=== PATIENT | female | born 1955 | race African-American/Black ===

== ENCOUNTER 2016-11-02 19:54 | Observation (INO) | payer BC ==
[2016-11-02] MEDS ORDERED: KETOROLAC TROMETHAMINE 60 MG/2 ML VIAL IM ONE (20:31)
--- NOTE | 2016-11-02 20:31 | PDOC ---
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 She states that she fell onto her left side, and hit her head. The pain starts from her left hip to the left foot. The pain is exacerbated upon movement, standing, and laying on her back. She states that initially after the fall, she was able to walk. On Thursday,4 days ago, she states that her lower back started hurting, which progressively worsened into today. Yesterday, she used a lidocaine patch and took motrin 800mg with mild relief. The last dose of motrin that she took was 1 hour and a half ago. She states that she did not visit the ER sooner, because she is used to dealing with pain. Denies LOC, headache. Denies lightheadedness, dizziness, changes in vision. Denies chest pain, SOB. Allergies:Codeine, iodinated contrast media Surgical Hx: left hip replacement PCP- Dr. Schilling <Yuly Marcelino - Last Filed: 11/02/16 20:37> <Gosia Caruso - Last Filed: 11/05/16 04:10> - General Chief Complaint: Injury Stated Complaint: FELL ONE WEEK AGO, PAIN TO LEFT HIP/LEG Time Seen by Provider: 11/02/16 19:59 Past History <Yuly Marcelino - Last Filed: 11/02/16 20:37> - Past Medical History Other medical history: NECROSIS OF HIP/SHOULDER - Psycho/Social/Smoking Cessation Hx Anxiety: No Suicidal Ideation: No Smoking Status: No Smoking History: Never smoked Have you smoked in the past 12 months: No Number of Cigarettes Smoked Daily: 0 Information on smoking cessation initiated: No Hx Alcohol Use: No Drug/Substance Use Hx: No Substance Use Type: None <Gosia Caruso - Last Filed: 11/05/16 04:10> - Past Medical History Allergies/Adverse Reactions: Allergies Allergy/AdvReac Type Severity Reaction Status Date / Time codeine [Codeine] Allergy Verified 11/02/16 20:03 Iodinated Contrast Media - Allergy Verified 11/02/16 20:03 Oral and [IV Dye, Iodine Containing Contrast ] Home Medications: Ambulatory Orders Cyclobenzaprine HCl [Flexeril -] 10 mg PO TID PRN #20 tablet 11/04/16 Lidocaine 5% Patch [Lidoderm -] 1 patch TP DAILY #30 patch 11/04/16 Naproxen [Naprosyn -] 500 mg PO BID PRN #14 tablet 11/04/16 Prednisone [Deltasone -] 5 mg PO ASDIR #32 tab 11/04/16 Ranitidine [Zantac -] 150 mg PO DAILY #30 tablet 11/04/16 Review of Systems - Review of Systems Able to Perform ROS?: Yes Comments:: 11/02/16 20:32 CONSTITUTIONAL: Absent: fever, no chills, no fatigue EYES: Absent: visual changes ENT: Absent: ear pain, no sore throat CARDIOVASCULAR: Absent: chest pain, no palpitations RESPIRATORY: Absent: cough, no SOB GI: Absent: abdominal pain, no nausea, no vomiting, no constipation, no diarrhea GENITOURINARY: Absent: dysuria, no frequency, no hematuria MUSCULOSKELETAL: Present: lower back pain, left hip and left leg pain. Absent: no arthralgia, no myalgia SKIN: Absent: rash NEURO: Absent: headache <Yuly Marcelino - Last Filed: 11/02/16 20:37> *Physical Exam - Vital Signs Last Vital Signs Temp Pulse Resp BP Pulse Ox 97.7 F 68 20 139/78 100 11/02/16 20:04 11/02/16 20:04 11/02/16 20:04 11/02/16 20:04 11/02/16 20:04 <Yuly Marcelino - Last Filed: 11/02/16 20:37> - Vital Signs Last Vital Signs Temp Pulse Resp BP Pulse Ox 97.7 F 68 20 139/78 100 11/02/16 20:04 11/02/16 20:04 11/02/16 20:04 11/02/16 20:04 11/02/16 20:04 - Physical Exam Comments: adult female, alert and oriented X 3 , in marked distress, secondary to back/ left leg pain with any movement vital signs as noted HEAD: No contusions, abrasions or lacerations of the scalp; no facial ecchymosis , deformities or tenderness EYES: Pupils equal, round and reactive to light, extraocular movements intact, sclera anicteric, conjunctiva clear PHARYNX: No erythema, exudate or edema; mucous membranes moist NECK: Supple, nontender, no masses or bruits LUNGS: Clear to auscultation bilaterally CARDIAC: S1, S2 normal; no extra sounds, rubs or murmurs heard ABDOMEN:Normoactive bowel sounds, nontender, no masses, no organomegaly BACK:no tenderness of central lumbar or sacral vertebrae mild left paraspinal muscle tenderness, lumbar/lumbosacral area EXTREMITIES: left lower extremity- pain with straight leg raising at 10; no deformity, no edema NEUROLOGICAL: Cranial nerves II through XII grossly intact. Normal speech, normal gait.moving all 4 extremities equally, Sensation intact in all extremities. SKIN: Warm, Dry, normal turgor, no rashes or lesions not twelve-lead electrocardiogram is performed: Normal sinus rhythm at 58 bpm; axis , intervals and wave forms are all normal <Gosia Caruso - Last Filed: 11/05/16 04:10> ED Treatment Course - LABORATORY CBC & Chemistry Diagram: 11/04/16 07:00 11/04/16 07:00 <Gosia Caruso - Last Filed: 11/05/16 04:10> Progress Note - Progress Note Progress Note: Documentation has been prepared under my direction and personally reviewed by me in its entirety. I attest that this documented accurately reflects all work, treatment, procedures and medical decision making performed by me. <Gosia Caruso - Last Filed: 11/05/16 04:10> Medical Decision Making - Medical Decision Making CT of lumbar spine and plain film of pelvis/left hip performed. Imaging ergonomic specialist interpretation: There is no evidence of fracture There is moderate central canal stenosis at L3/L4, L4/L5, L5/S1 secondary to annular disc bulges and hypertrophic changes in ligamentum flavum The patient had no relief in pain after Toradol 60mg IM; After Dilaudid 1mg IM, she had marked relief. patient states that she only uses motrin for pain relief: all other medications , including Percocet, have been ineffective for pain 11/03/16 02:39 now has recurrent lower back and left leg pain. Additional Dilaudid 1 mg IV will be given. Because the patient has severe pain, requiring parenteral narcotics, and states that no medication except ibuprofen is effective for her (and this has been not working for this) inpatient admission warranted for intractable pain. Patient's PMD is Dr. Schilling who admits to [facility]. Dr. Nava cotacted and case discussed with her. Patient will be admitted as observationn for pain control/neurology evaluation <Gosia Caruso - Last Filed: 11/05/16 04:10> *DC/Admit/Observation/Transfer - Attestations Scribe Attestion: 11/02/16 20:32 Documentation prepared by LALO Rosado, acting as infertility medical assistant for Gosia Caruso MD. <Yuly Marcelino - Last Filed: 11/02/16 20:37> - Discharge Dispostion Admit: Yes <Gosia Caruso - Last Filed: 11/05/16 04:10> Diagnosis at time of Disposition: Intractable low back pain - Discharge Dispostion Disposition: HOME Condition at time of disposition: Improved - Prescriptions - Referrals
[2016-11-02 20:36] VITALS: BMI 24.4
[2016-11-02] MEDS ORDERED: HYDROmorphone HCL CARPU-JECT 1 MG/1 ML DISP.SYRIN IM ONE (21:37)
[2016-11-02] MEDS ORDERED: HYDROmorphone HCL CARPU-JECT 2 MG/1 ML DISP.SYRIN ONE (21:42)
[2016-11-02 23:02] LABS: MCH 28.8 pg (25.7-33.7); MCHC 33.6 g/dl (32.0-36.0); MEAN CELL VOLUME 85.6 fl (80-96); MEAN PLT VOLUME 8.6 fl (7.5-11.1); PLATELET COUNT 177 K/MM3 (134-434); RDW 12.1 % (11.6-15.6); WHITE BLOOD COUNT 6.6 K/mm3 (4.0-10.0)
[2016-11-02 23:16] LABS: ALBUMIN 3.7 g/dl (3.5-5.0); ALK PHOS 98 U/L (32-92); ANION GAP 7 (8-16); BILIRUBIN,TOTAL 0.5 mg/dl (0.2-1.0); CALCIUM 8.7 mg/dl (8.4-10.2); CO2 24 mmol/L (22-28); CREATININE 0.8 mg/dl (0.6-1.3); GLUCOSE,RANDOM 114 mg/dl (74-106); SGOT/AST 24 U/L (10-42); SGPT/ALT 11 U/L (10-40); TOT PROT 6.7 g/dl (6.4-8.3)
[2016-11-03] MEDS ORDERED: morphine CARPU-JECT 2 MG/1 ML DISP.SYRIN IVPUSH PRN (02:32)
[2016-11-03] MEDS ORDERED: HYDROmorphone HCL CARPU-JECT 1 MG/1 ML DISP.SYRIN IVPUSH ONE (02:32)
--- NOTE | 2016-11-03 07:52 | HP ---
[id number] patient is a 61-year-old female, with a significant past medical history of aseptic necrosis of bilateral hips and right shoulder. She underwent a left hip replacement (2012, to [facility]). She reports no pain after her left hip replacement. However, she does report ongoing pain to the right hip and as a results she shifts her weight to the left hip hip in an attempt to alleviate her ongoing right hip pain. In addition, patient fell one week ago, due to uneven plywood plank at her apartment building. He reports falling onto her left side, as a result the pain became progressively worse. Patient reports relief from Motrin and lidocaine patch daily but with the past 24 hours the pain became unrelieved with her home regimen and she sought evaluation in the emergency department. ER course was notable for: (1) ct of lumbar spine, grade I spondylithasis, no compression fracture. 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 PAST SURGICAL HISTORY: left hip replacement Social History: resides at home alone Smoking: none Alcohol: none Drugs: none Family History: non contributory Allergies codeine [Codeine] Allergy (Verified 11/02/16 20:03) Iodinated Contrast Media - Oral and [IV Dye, Iodine Containing Contrast ] Allergy (Verified 11/02/16 20:03) HOME MEDICATIONS: Medication Instructions Recorded No Home Medications 0 dose .ROUTE UTDICT 09/03/12 REVIEW OF SYSTEMS CONSTITUTIONAL: Absent: fever, chills, diaphoresis, generalized weakness, malaise, loss of appetite, weight change HEENT: Absent: rhinorrhea, nasal congestion, throat pain, throat swelling, difficulty swallowing, mouth swelling, ear pain, eye pain, visual changes CARDIOVASCULAR: Absent: chest pain, syncope, palpitations, irregular heart rate, lightheadedness , peripheral edema RESPIRATORY: Absent: cough, shortness of breath, dyspnea with exertion, orthopnea, wheezing, stridor, hemoptysis GASTROINTESTINAL: Absent: abdominal pain, abdominal distension, nausea, vomiting, diarrhea, constipation, melena, hematochezia GENITOURINARY: Absent: dysuria, frequency, urgency, hesitancy, hematuria, flank pain, genital pain MUSCULOSKELETAL: Present: left hip pain Absent: myalgia, arthralgia, joint swelling, back pain, neck pain SKIN: Absent: rash, itching, pallor HEMATOLOGIC/IMMUNOLOGIC: Absent: easy bleeding, easy bruising, lymphadenopathy, frequent infections ENDOCRINE: Absent: unexplained weight gain, unexplained weight loss, heat intolerance, cold intolerance NEUROLOGIC: Absent: headache, focal weakness or paresthesias, dizziness, unsteady gait, seizure, mental status changes, bladder or bowel incontinence PSYCHIATRIC: Absent: anxiety, depression, suicidal or homicidal ideation, hallucinations. PHYSICAL EXAMINATION Vital Signs - 24 hr 11/03/16 03:35 Temperature 98.5 F Pulse Rate 60 Respiratory 16 Rate Blood Pressure 140/68 O2 Sat by Pulse 100 Oximetry (%) GENERAL: Awake, alert, and fully oriented, in no acute distress. HEAD: Normal with no signs of trauma. EYES: Pupils equal, round and reactive to light, extraocular movements intact, sclera anicteric, conjunctiva clear. No lid lag. EARS, NOSE, THROAT: Ears normal, nares patent, oropharynx clear without exudates. Moist mucous membranes. NECK: Normal range of motion, supple without lymphadenopathy, JVD, or masses. LUNGS: Breath sounds equal, clear to auscultation bilaterally. No wheezes, and no crackles. No accessory muscle use. HEART: Regular rate and rhythm, normal S1 and S2 without murmur, rub or gallop. ABDOMEN: Soft, nontender, not distended, normoactive bowel sounds, no guarding, no rebound, no masses. No hepatomegaly or splenomegaly. MUSCULOSKELETAL: Normal range of motion at all joints. No bony deformities or tenderness. No CVA tenderness. negative slr billaterally at 45 and at 90 degress UPPER EXTREMITIES: 2+ pulses, warm, well-perfused. No cyanosis. No clubbing. Cap refill <2 seconds. No peripheral edema. LOWER EXTREMITIES: 2+ pulses, warm, well-perfused. No calf tenderness. No peripheral edema. no pain illicted upon abduction or aduction of the left hip pain on PROM of the right hip, no erythema no deformity noted NEUROLOGICAL: Cranial nerves II-XII intact. Normal speech. Normal gait. PSYCHIATRIC: Cooperative. Good eye contact. Appropriate mood and affect. SKIN: Warm, dry, normal turgor, no rashes or lesions noted. ASSESSMENT/PLAN: 1) muscularskeletal: - pt reports perocet and ultram is Ineffective, continue morphine 4mg IV prn, start naproxyn 500mg BID standing, and flexeril prn - pt evaluation - appreciate ortho consult (Dr Jang), pt reports she has been evaluated by Dr Jang last year. f/e/n - regualar diet ppx oob pt zantac dispo: requires 24 hour observation Visit type - Emergency Visit Emergency Visit: Yes ED Registration Date: 11/03/16 Care time: The patient presented to the Emergency Department on the above date and was hospitalized for further evaluation of their emergent condition. - New Patient This patient is new to me today: Yes Date on this admission: 11/03/16 - Critical Care Critical Care patient: No
[2016-11-03] MEDS: CYCLOBENZAPRINE HCL 10 MG TABLET (FP) PO PRN ×2 (08:54→17:30)
[2016-11-03] MEDS: ONDANSETRON 4 MG/2 ML VIAL IVPB ONE ×2 (08:54→08:55)
[2016-11-03] MEDS: NAPROXEN 500 MG TABLET (FP) PO SCH ×3 (09:15→21:59)
[2016-11-03] MEDS: RANITIDINE HCL 150 MG TABLET (FP) PO SCH (09:16)
[2016-11-03] MEDS: LIDOCAINE 5% TOPICAL PATCH TP SCH (11:15)
--- NOTE | 2016-11-03 12:48 | FALL ---
Fall Exam - Event Witnessed fall: No Location of Fall: Bathroom Fall from: While ambulating - Pre-Fall Fall Risk: High Risk Mental Status: Alert Current Medications: Current Medications Generic Name Dose Route Start Last Admin Trade Name Cintia PRN Reason Stop Dose Admin Cyclobenzaprine HCl 10 mg 11/03/16 08:25 11/03/16 08:54 Flexeril - PO 10 mg TID PRN Administration MUSCLE SPASMS Lidocaine 1 patch 11/03/16 10:00 11/03/16 11:15 Lidoderm Patch - TP 1 patch DAILY JON Administration Morphine Sulfate 2 mg 11/03/16 02:32 Morphine Injection - IVPUSH Q4H PRN PAIN LEVEL 6-10 Naproxen 500 mg 11/03/16 10:00 11/03/16 09:15 Naprosyn - PO 500 mg BID JON Administration Ranitidine HCl 150 mg 11/03/16 10:00 11/03/16 09:16 Zantac - PO 150 mg DAILY JON Administration - Post-Fall Patient Outcome: No Injury Treatment: None Vital Signs: Vital Signs Temperature 98.5 F 11/03/16 08:15 Pulse Rate 60 11/03/16 08:15 Respiratory Rate 16 11/03/16 08:15 Blood Pressure 133/68 11/03/16 08:15 O2 Sat by Pulse Oximetry (%) 100 11/03/16 08:15 LOC Post-Fall: Unchanged, Awake, Alert, Oriented Identify factors for HIGH RISK for Head Injury: None of the above
--- NOTE | 2016-11-03 13:16 | EKG ---
Test Reason : Blood Pressure : / mmHG Vent. Rate : 058 BPM Atrial Rate : 058 BPM P-R Int : 180 ms QRS Dur : 074 ms QT Int : 394 ms P-R-T Axes : 059 045 046 degrees QTc Int : 386 ms SINUS BRADYCARDIA OTHERWISE NORMAL ECG WHEN COMPARED WITH ECG OF 30-AUG-2012 18:24, NO SIGNIFICANT CHANGE WAS FOUND Confirmed by CAL MCGRATH MD ([id number]) on 11/03/2016 1:15:53 PM Referred By: JEROME PRYOR Confirmed By:CAL MCGRATH MD
[2016-11-03 13:24] LABS: PH,URINE 5.5 (4.5-8); URINE BILIRUBIN Negative (NEGATIVE); URINE BLOOD Negative (NEGATIVE); URINE GLUCOSE (UA) Negative (NEGATIVE); URINE KETONE Negative (NEGATIVE); URINE NITRITE Negative (NEGATIVE); URINE PROTEIN Trace (NEGATIVE); URINE UROBILINOGEN 1.0 E.U/dl (0.2-1.0)
[2016-11-03 13:27] LABS: URINE APPEARANCE SL CLOUDY; URINE COLOR YELLOW; URINE LEUK ESTERASE 1+ (NEGATIVE)
[2016-11-03 13:46] LABS: URINE RBC NONE SEEN /hpf (0-3); URINE WBC 50-80 (3-5)
--- NOTE | 2016-11-03 19:49 | CONSULT ---
Consult Consult Specialty:: Orthopedics Reason for Consultation:: Low back and LLE pain - History of Present Illness History of Present Illness: 61yo female who I have seen before as an outpatient. 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 She fell ~ 1wk ago and hit her hip. A few days later she started developing low back pain and yesterday after orthodox the back pain increased to the point where she was in tears and could not stand on her left leg due to severe radiating pain in the limb. She tried taking ibuprofen and using a lidocaine patch without relief. Pt seen and examined. Describes radiating pain in the anterior left thigh down to the ankle, with electric sensations and numbness. It has improved since yesterday but she is still uncomfortable. She was able to ambulate with PT today. - Alcohol/Substance Use Hx Alcohol Use: No - Smoking History Smoking history: Never smoked Have you smoked in the past 12 months: No Aproximately how many cigarettes per day: 0 Home Medications - Allergies Allergies/Adverse Reactions: Allergies Allergy/AdvReac Type Severity Reaction Status Date / Time codeine [Codeine] Allergy Verified 11/02/16 20:03 Iodinated Contrast Media - Allergy Verified 11/02/16 20:03 Oral and [IV Dye, Iodine Containing Contrast ] - Home Medications Home Medications: Ambulatory Orders No Home Medications 0 dose .ROUTE UTDICT 09/03/12 Physical Exam Vital Signs: Vital Signs Temperature 98 F 11/03/16 16:00 Pulse Rate 133 H 11/03/16 16:00 Respiratory Rate 16 11/03/16 16:15 Blood Pressure 134/74 11/03/16 13:41 O2 Sat by Pulse Oximetry (%) 100 11/03/16 16:15 Assessment/Plan Afebrile Back/LLE - mild paraspinal tenderness. C/O radiating pain and numbness in the ~ L4 distribution. Negative straight leg raise bilaterally. No left hip joint- related pain on ROM testing. Can maintain a straight leg raise without significant difficulty. Grossly NVI in the LLE, though c/o subjective numbness. XR hip - no fracture, hardware in place CT L/spine - L3/L4 spondylolisthesis, L4/L5 disc protrusion (herniation?) with left-sided neuroforaminal stenosis A/P 61yo female with lumbar radiculopathy - symptoms seem like acute herniated disc 1. Start on Medrol 8mg PO Q8h - if pt improves, discharge home on Medrol Dose- Pack (taper) 2. Will need MRI as inpatient vs outpatient 3. Consult Dr. Salazar for possible epidural injection if no response to oral meds. 4. F/U in our office after discharge with my partner, Dr. Calderon, a government affairs specialist. [phone] 5. PT/OOB - WBAT 6. Will follow.
[2016-11-03] MEDS: methylPREDNISolone 4 MG TABLET PO SCH (21:58)
[2016-11-04] MEDS: methylPREDNISolone 4 MG TABLET PO SCH ×2 (06:17→14:00)
[2016-11-04 08:42] LABS: BASOPHIL 0.5 % (0-2.0); EOSINOPHIL 0.2 % (0-4.5); MCH 28.1 pg (25.7-33.7); MCHC 32.5 g/dl (32.0-36.0); MEAN CELL VOLUME 86.4 fl (80-96); MEAN PLT VOLUME 8.6 fl (7.5-11.1); NEUTROPHILS 74.9 % (42.8-82.8); PLATELET COUNT 177 K/MM3 (134-434); RDW 12.4 % (11.6-15.6); WHITE BLOOD COUNT 4.1 K/mm3 (4.0-10.0)
[2016-11-04 09:06] LABS: ALBUMIN 3.7 g/dl (3.5-5.0); ALK PHOS 104 U/L (32-92); ANION GAP 5 (8-16); BILIRUBIN,TOTAL 0.7 mg/dl (0.2-1.0); CO2 27 mmol/L (22-28); CREATININE 0.7 mg/dl (0.6-1.3); GLUCOSE,RANDOM 110 mg/dl (74-106); MAGNESIUM 1.8 mg/dL (1.8-2.4); PHOSPHOROUS 3.8 mg/dl (2.5-4.6); SGOT/AST 21 U/L (10-42); SGPT/ALT 12 U/L (10-40); TOT PROT 6.6 g/dl (6.4-8.3)
--- NOTE | 2016-11-04 09:12 | DS ---
Physical Exam: SUBJECTIVE: Patient seen and examined, patient reports feeling better, reports pain is 2/10, denies any paresthesia to the lower extremity. 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 She underwent a left hip replacement (2012, to [facility]). She reports no pain after her left hip replacement. However, she does report ongoing pain to the right hip and as a results she shifts her weight to the left hip hip in an attempt to alleviate her ongoing right hip pain. In addition, patient fell one week ago, due to uneven plywood plank at her apartment building. He reports falling onto her left side, as a result the pain became progressively worse. Patient reports relief from Motrin and lidocaine patch daily but with the past 24 hours the pain became unrelieved with her home regimen and she sought evaluation in the emergency department. ER course was notable for: (1) ct of lumbar spine, grade I spondylithasis, no compression fracture. (2) xray of left hip, no fracture (3) WBC wnl (4) pt was given dilaudid 2mg and toradol 60mg with no relief of pain Vital Signs Period Temp Pulse Resp BP Sys/Wilcox Pulse Ox Last 24 Hr 97.4 F-98.6 F 58-133 16-18 130-138/67-74 99-100 PHYSICAL EXAM GENERAL: Awake, alert, and fully oriented, in no acute distress. HEAD: Normal with no signs of trauma. EYES: Pupils equal, round and reactive to light, extraocular movements intact, sclera anicteric, conjunctiva clear. No lid lag. EARS, NOSE, THROAT: Ears normal, nares patent, oropharynx clear without exudates. Moist mucous membranes. NECK: Normal range of motion, supple without lymphadenopathy, JVD, or masses. LUNGS: Breath sounds equal, clear to auscultation bilaterally. No wheezes, and no crackles. No accessory muscle use. HEART: Regular rate and rhythm, normal S1 and S2 without murmur, rub or gallop. ABDOMEN: Soft, nontender, not distended, normoactive bowel sounds, no guarding, no rebound, no masses. No hepatomegaly or splenomegaly. MUSCULOSKELETAL: Normal range of motion at all joints. No bony deformities or tenderness. No CVA tenderness. negative slr billaterally at 45 and at 90 degress UPPER EXTREMITIES: 2+ pulses, warm, well-perfused. No cyanosis. No clubbing. Cap refill <2 seconds. No peripheral edema. LOWER EXTREMITIES: 2+ pulses, warm, well-perfused. No calf tenderness. No peripheral edema. no pain illicted upon abduction or aduction of the left hip pain on PROM of the right hip, no erythema no deformity noted NEUROLOGICAL: Cranial nerves II-XII intact. Normal speech. Normal gait. PSYCHIATRIC: Cooperative. Good eye contact. Appropriate mood and affect. SKIN: Warm, dry, normal turgor, no rashes or lesions noted. LABS Laboratory Results - last 24 hr 11/03/16 11/04/16 12:30 07:00 WBC 4.1 D RBC 4.47 Hgb 12.6 Hct 38.6 MCV 86.4 MCHC 32.5 RDW 12.4 Plt Count 177 MPV 8.6 Neutrophils % 74.9 D Lymphocytes % 20.9 Monocytes % 3.5 L Eosinophils % 0.2 Basophils % 0.5 Urine Color Yellow Urine Appearance Sl cloudy Urine pH 5.5 Ur Specific [place] >= 1.030 H Urine Protein Trace Urine Glucose (UA) Negative Urine Ketones Negative Urine Blood Negative Urine Nitrite Negative Urine Bilirubin Negative Urine Urobilinogen 1.0 e.u/dl Ur Leukocyte Esterase 1+ H Urine RBC None seen Urine WBC 50-80 Ur Epithelial Cells 3-[address] of lumbar spine, grede 1 degenerative anterior spondylolistheis of l3 on l4, moderate severe central spinal canal stenosis. xray of hip/pelvis, left hip arthoplasty, right femoral head AVN noted with degenerative changes HOSPITAL COURSE: patient was admitted for intractable back and hip pain. she was initally treated with dilaudid and toradol with no relief of pain. patient eports perocet and ultram is Ineffective, morphine 4mg IV prn She was started on naproxyn 500mg BID standing, and flexeril prn. patient was evaluated by the orthopedist Dr Jang. she was placed on methyl prednisone with relief. PLAN discharge home with physical therapy steroid taper an appointment was made for Dr Salazar (pain management) for tomorrow at 1pm continue naproxyn and flexeril for pain ate of Admission:11/03/16 Date of Discharge: 11/04/16 Minutes to complete discharge: 45 Discharge Summary Reason For Visit: FELL ONE WEEK AGO, PAIN TO LEFT HIP/LEG Current Active Problems Intractable low back pain (Acute) Condition: Stable - Instructions Referrals: Donell Schilling MD [Primary Care Provider] - - Home Medications Comprehensive Discharge Medication List: Ambulatory Orders No Home Medications 0 dose .ROUTE UTDICT 09/03/12 This patient is new to me today: No Emergency Visit: Yes ED Registration Date: 11/03/16 Care time: The patient presented to the Emergency Department on the above date and was hospitalized for further evaluation of their emergent condition. Critical Care patient: No - Discharge Referral Referred to [facility] No
--- NOTE | 2016-11-04 09:40 | PN ---
Progress Note (short form) - Note Progress Note: Pt seen and examined. Feels a little better after starting steroid Plan: PT - if improved, D/C with Medrol Dose Pack and Naproxen, f/u with Dr. Calderon for herniated disc If no improvement, pain mgmt consult for epidural injection.
[2016-11-04] MEDS ORDERED: PT OWN MED DRAWER 7, Y5N ONE ×2 (09:45→13:51)
[2016-11-04] MEDS: NAPROXEN 500 MG TABLET (FP) PO SCH (10:03)
[2016-11-04] MEDS: RANITIDINE HCL 150 MG TABLET (FP) PO SCH (10:04)
[2016-11-04] MEDS: LIDOCAINE 5% TOPICAL PATCH TP SCH (11:00)
[2016-11-04] MEDS: CYCLOBENZAPRINE HCL 10 MG TABLET (FP) PO PRN (13:59)
[2016-11-04 15:41] VITALS: BP 122/62; PULSE 73; TEMP 98.1
== END 2016-11-04 15:00 | disposition home or self-care (01) ==
LOC: FER 19:54 → FM/S 11-03 02:40
PROVIDERS: ADMIT Internal Medicine; ATTEND Nurse Practitioner Family
DX: M54.5 Low back pain (principal); Z96.642 Presence of left artificial hip joint
CPT/HCPCS: 36415; 72131-TC; 73523-TC; 80053; 81003; 81015; 83735; 84100; 85025; 87086; 93005; 97116-GP; 97163-GP; 99284-25; G0378

== ENCOUNTER 2020-06-27 10:47 | Inpatient (IN) | payer BC, OTHER ==
[2020-06-27] MEDS ORDERED: ACETAMINOPHEN 325 MG TABLET (FP) PO ONE (10:58)
--- NOTE | 2020-06-27 10:58 | PDOC ---
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 Pt was walking down incline asphalt that was emilia, when she tripped and tumbled down, hitting her lower back and right side against the ground and wall. felt dazed, but denies LOC or head injury. she feels tingling and numb in her whole body. +difficulty walking and lower back pain worse with movement. no cp or sob, abdominal pain, n/v, weakness, bladder or bowel incontinence/r etention, neck pain. 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 PSH: left hip replacement (2012). PMD: Dr Perales 06/27/20 13:56 Past History - Medical History Allergies/Adverse Reactions: Allergies Allergy/AdvReac Type Severity Reaction Status Date / Time codeine [Codeine] Allergy Intermediate Rash Verified 06/27/20 10:51 Iodinated Contrast Media Allergy Rash Verified 06/27/20 10:51 [IV Dye, Iodine Containing Contrast ] Home Medications: Ambulatory Orders Darunavir/Cob/Emtri/Tenof Alaf [Symtuza [id number] mg Tab] 1 each PO DAILY 06/27/20 - Surgical History Orthopedic Surgery: Yes (2012 left hip replacement) - Psycho-Social/Smoking History Smoking Status: No Smoking History: Never smoked Have you smoked in the past 12 months: No Number of Cigarettes Smoked Daily: 0 Review of Systems - Review of Systems Able to Perform ROS?: Yes Comments:: 06/27/20 13:34 ROS: Constitutional: no fevers or chills. HEENT: no headache, no dizziness. No visual or hearing changes. No dental pain. No neck pain CVS: no chest pain or palpitations, no syncope Resp: no shortness of breath Abdomen: no abdominal pain Genitorurinary: no urinary retention or incontinence, no dysuria, urgency or frequency. no hematuria MUSCULOSKELETAL: No joint pain and swelling. No muscle pain/arthralgias. +wrist pain. Back: +back pain SKIN: no redness or skin changes, no discharge, no rash. No wounds. Hematologic: no easy bruising/bleeding. NEUROLOGIC: No weakness, numbness or tingling. Allergic/Immunologic: +medication allergies All other systems reviewed and negative, or as documented in HPI. 06/27/20 13:36 *Physical Exam - Physical Exam 06/27/20 13:34 Physical exam: General: GCS 15 - uncomfortable appearing HEENT: NCAT, PERRL, EOMI. Airway intact. No battles sign or raccoon eyes. No e/o ocular. Dentition intact. No e/o septal hematoma, nasal bridge stable. Neck: neck supple, no midline C spine tenderness or deformity, ROM intact. No anterior mass or crepitus, trachea midline. Resp: Lungs clear bilaterally Chest: no clavicle or chest wall tenderness or crepitus CVS: RRR, 2+ pulses throughout. Abdomen: Abdomen soft, nontender, nondistended. Back: +midline lower thoracic and lumbar TTP, right paraspinal lumbar tenderness. no midline spinal tenderness along cervical spine, FROM, no stepoffs. MSK: Pelvis stable, Extremities symmetric, no focal areas of tenderness or deformities, proximal and distally; no pain on axial loading. FROM in all extrem. +mild tenderness to the distal right wrist; no scaphoid tenderness, no tenderness with axial loading. 5/5 plantar and dorsiflexion, SILT in all extrem Neuro: Alert, oriented appropriately. CN II-XII grossly symmetric and intact. no focal neuro deficits. Sensation and strength intact throughout. gait not assessed. wiggles toes, 5/5 plantar and dorsiflexion, 5/5 proximal and distal strength in all extremities. Skin: intact, normal color and well perfused. no ecchymosis or wounds 06/27/20 13:37 06/27/20 14:36 ED Treatment Course - LABORATORY CBC & Chemistry Diagram: 06/27/20 14:05 06/27/20 14:05 Medical Decision Making - Medical Decision Making 06/27/20 11:38 Vital Signs Temp Pulse Resp BP Pulse Ox 98.4 F 59 L 20 138/74 98 06/27/20 10:50 06/27/20 10:50 06/27/20 10:50 06/27/20 10:50 06/27/20 10:50 Trauma ddx: ICH, SDH/ EDH, skull fx, C spine injury/strain, extremity sprain/fracture, pelvis fracture. MSK contusion, msk spasms. Rib fractures. PTX . compression fracture, lumbar/sacral/thoracic strain, rib fx, ptx, effusion, chest wall contusion. Clinically doubt Intra abdominal and thoracic injuries/bleed No evidence to suggest intracranial bleed/injury, no head ct imaging indicated at this time, neuro intact. no suspicion of thoracic, abdominal, pelvic or extremity injury by exam. NEXUS NEGATIVE The patient was ruled out for clinically significant C-spine injury via NEXUS criteria. Because the patient is A&Ox3, has no focal neurologic deficits, no posterior midline c-spine tenderness to palpation, no evidence of intoxication and has no painful distracting injuries there is no need to obtain radiographic studies to evaluate the cervical spine. 06/27/20 11:59 Scoliosis degenerative changes clear lungs, no acute chest pathology Thoracic x-ray is unremarkable, there is some scoliosis and degenerative changes but no fracture or subluxation. Lumbosacral spine x-ray also with scoliosis patent SI joints, status post left hip replacement and arthritic right hip intact paraspinal soft tissues. There may be slight subluxation of L4 on 5 which is new compared to prior imaging 2017. Patient does hurt in the area will pursue CT imaging for further evaluation of potential fracture versus subluxation after her fall. 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 admitting to Dr Coretz, signed out case covid swab 06/27/20 14:36 06/27/20 14:37 Discharge - Discharge Information Problems reviewed: Yes Clinical Impression/Diagnosis: T12 compression fracture Qualifiers: Encounter type: initial encounter Qualified Code(s): S22.080A - Wedge compression fracture of T11-T12 vertebra, initial encounter for closed fracture Compression fracture of L3 vertebra Qualifiers: Encounter type: initial encounter Qualified Code(s): S32.030A - Wedge compression fracture of third lumbar vertebra, initial encounter for closed fracture Condition: Stable - Admission Yes - Follow up/Referral Referrals: Celeste De [Primary Care Provider] - - Patient Discharge Instructions - Post Discharge Activity
[2020-06-27] MEDS ORDERED: LIDOCAINE 5% TOPICAL PATCH TP ONE (10:59)
[2020-06-27] MEDS ORDERED: CYCLOBENZAPRINE HCL 5 MG TABLET PO ONE (10:59)
[2020-06-27] MEDS ORDERED: ACETAMINOPHEN 500 MG TABLET (FP) ONE (11:05)
[2020-06-27] MEDS ORDERED: LIDOCAINE 5% TOPICAL PATCH ONE (11:05)
[2020-06-27] MEDS ORDERED: CYCLOBENZAPRINE HCL 10 MG TABLET (FP) ONE (11:05)
[2020-06-27] MEDS ORDERED: oxyCODONE HCL 5 MG TABLET PO ONE (12:01)
[2020-06-27] MEDS ORDERED: oxyCODONE HCL 5 MG TABLET ONE (12:24)
[2020-06-27 14:34] LABS: BASO % 3.2 % (0-2.0); HEMATOCRIT 39.2 % (32.4-45.2); HEMOGLOBIN 13.1 GM/dl (10.7-15.3); LYMPH % 27.1 % (8-40); MCH 29.4 pg (25.7-33.7); MCHC 33.5 g/dl (32.0-36.0); MEAN CELL VOLUME 87.7 fl (80-96); MEAN PLT VOLUME 8.2 fl (7.5-11.1); MONO % 5.2 % (3.8-10.2); NEUT % 62.5 % (42.8-82.8); PLATELET COUNT 200 K/MM3 (134-434); RBC 4.47 M/mm3 (3.60-5.2); RDW 12.4 % (11.6-15.6); WHITE BLOOD COUNT 6.1 K/mm3 (4.0-10.8)
[2020-06-27 14:41] LABS: ALBUMIN 3.8 g/dl (3.4-5.0); BILIRUBIN,TOTAL 0.7 mg/dl (0.2-1); CALCIUM 8.9 mg/dl (8.5-10); CREATININE 0.8 mg/dl (0.55-1.3); POTASSIUM 4.2 mmol/L (3.5-5.1); TOT PROT 6.9 g/dl (6.4-8.2)
[2020-06-27] MEDS ORDERED: ACETAMINOPHEN 1000 MG/100 ML VIAL (NON FORMULARY) IVPB PRN (15:12)
[2020-06-27] MEDS ORDERED: CYCLOBENZAPRINE HCL 10 MG TABLET (FP) PO PRN (15:13)
--- NOTE | 2020-06-27 15:17 | HP ---
CHIEF COMPLAINT: s/p mechanical fall PCP: denies HISTORY OF PRESENT ILLNESS: 65 F h/o HIV on HAART (undetectable VL), otherwise no PMHx, presents s/p mechanical fall after tripping on a "emilia pathway". Patient denies prodromal symptoms such as SOb/CP/dizziness/vertigo/palpitations. Endorses fall was mechanical landing on her back. In ED imaging showing acute fx of T12-S1, NSG consulted recommending conservative management. Pt. to be admitted for pain control and PT. Denies COVID symptoms. Recent Travel: denies PAST MEDICAL HISTORY: as above PAST SURGICAL HISTORY: denies Social History: denies x3 Allergies codeine [Codeine] Allergy (Intermediate, Verified 06/27/20 10:51) Rash Iodinated Contrast Media [IV Dye, Iodine Containing Contrast ] Allergy (Verified 06/27/20 10:51) Rash HOME MEDICATIONS: Home Medications Medication Instructions Recorded Darunavir/Cob/Emtri/Tenof Alaf 1 each PO DAILY 06/27/20 [Symtuza [id number] mg Tab] PHYSICAL EXAMINATION Vital Signs - 24 hr 06/27/20 06/27/20 10:50 12:55 Temperature 98.4 F Pulse Rate 59 L Pulse Rate [ 54 L Apical] Respiratory 20 16 Rate Blood Pressure 138/74 O2 Sat by Pulse 98 99 Oximetry (%) Physical Exam: GA comfortable, AAOx3, tired appearing HEENT nC/AT, EOMI, neck supple, no oral thrush Chest CTAB CVS s1, S2+, RRR Abd SOft, NT, ND, BS+ Ext no LE edema, no calf tenderness MSK: tenderness along T12-S1 region, no palpable off step Neuro: sensation intact LE b/l, 3/5 power LE (due to pain), good strength sensation UE b/l Laboratory Results - last 24 hr 06/27/20 06/27/20 14:05 14:05 WBC 6.1 RBC 4.47 Hgb 13.1 Hct 39.2 MCV 87.7 MCH 29.4 MCHC 33.5 RDW 12.4 Plt Count 200 MPV 8.2 Absolute Neuts (auto) 3.9 Neutrophils % 62.5 Lymphocytes % 27.1 Monocytes % 5.2 Eosinophils % 2.0 Basophils % 3.2 H Sodium 137 Potassium 4.2 Chloride 105 Carbon Dioxide 22 Anion Gap 10 BUN 15.0 Creatinine 0.8 Est GFR (CKD-EPI)AfAm 90.94 Est GFR (CKD-EPI)NonAf 78.46 Random Glucose 92 Calcium 8.9 Total Bilirubin 0.7 AST 28 ALT 17 Alkaline Phosphatase 125 H Total Protein 6.9 Albumin 3.8 ASSESSMENT/PLAN: 65 F S/p mechanical fall T12-S1 compression FRACTURE HIV on HAART w/ undetectable VL Plan: Tylenol IV for pain, Percocet for severe breakthrough pain, Flexeril for muscle spasms Labs in AM Restart HAART supplement Vit D/Ca, may need osteoporosis workup as OP (DEXA scan) PT referral NSG following Follow w/ PCP Dr. Gallardo on discharge Dvt ppx: SCD/ambulation as tolerated Family Medical History Family History: Unremarkable Visit type - Emergency Visit Emergency Visit: Yes ED Registration Date: 06/27/20 Care time: The patient presented to the Emergency Department on the above date and was hospitalized for further evaluation of their emergent condition. - New Patient This patient is new to me today: Yes Date on this admission: 06/27/20 - Critical Care Critical Care patient: No
[2020-06-27] MEDS ORDERED: KETOROLAC TROMETHAMINE 60 MG/2 ML VIAL ONE (15:23)
[2020-06-27 17:45] VITALS: BMI 30.4
[2020-06-28] MEDS: CALCIUM 500MG/VIT-D 200 UNITS COMBO TABLET (FP) PO SCH ×3 (06:21→21:33)
[2020-06-28] MEDS ORDERED: oxyCODONE HCL 5 MG TABLET PO ONE (07:00)
[2020-06-28 08:08] LABS: EOS % 5.3 % (0-4.5); HEMATOCRIT 38.5 % (32.4-45.2); HEMOGLOBIN 12.2 GM/dl (10.7-15.3); LYMPH % 30.5 % (8-40); MCH 28.1 pg (25.7-33.7); MCHC 31.7 g/dl (32.0-36.0); MEAN CELL VOLUME 88.5 fl (80-96); MEAN PLT VOLUME 7.9 fl (7.5-11.1); MONO % 9.3 % (3.8-10.2); PLATELET COUNT 202 K/MM3 (134-434); RBC 4.35 M/mm3 (3.60-5.2); RDW 12.9 % (11.6-15.6); WHITE BLOOD COUNT 3.9 K/mm3 (4.0-10.8)
[2020-06-28 08:12] LABS: ALBUMIN 3.3 g/dl (3.4-5.0); BILIRUBIN,TOTAL 0.7 mg/dl (0.2-1); CALCIUM 8.3 mg/dl (8.5-10); POTASSIUM 4.2 mmol/L (3.5-5.1); TOT PROT 6.2 g/dl (6.4-8.2)
[2020-06-28] MEDS ORDERED: PATIENT'S OWN MEDICATION (NON-FORMULARY) (Darunavir/Cob/Emtri/Tenof Alaf [Symtuza 800-150- PO SCH ×2 (10:00→21:00)
--- NOTE | 2020-06-28 13:53 | PN ---
Progress Note, Physician Chief Complaint: s/p fall with Acute mild T12 and L3 vertebral body compression fractures History of Present Illness: 65 F h/o HIV on HAART (undetectable VL), otherwise no PMHx, presents s/p mec hanical fall after tripping on a "emilia pathway". Patient denies prodromal symptoms such as SOb/CP/dizziness/vertigo/palpitations. Endorses fall was mechanical landing on her back. In ED imaging showing acute fx of T12-L3, NSG consulted recommending conservative management. Pt. to be admitted for pain control and PT. Denies COVID symptoms, COVID screen negative. - Current Medication List Current Medications: Active Medications Acetaminophen (Ofirmev Injection -) 1,000 mg IVPB Q8H PRN PRN Reason: PAIN LEVEL 7 - 10 Stop: 06/28/20 15:13 Last Admin: 06/27/20 20:48 Dose: 1,000 mg Documented by: Calcium Carbonate/Cholecalciferol (Os-Tyree 500+D -) 1 tab PO BID [facility] Last Admin: 06/28/20 10:35 Dose: 1 tab Documented by: Cyclobenzaprine HCl (Flexeril -) 5 mg PO TID PRN PRN Reason: MUSCLE SPASMS Last Admin: 06/27/20 20:48 Dose: 5 mg Documented by: Non-Formulary Medication (Darunavir/Cob/Emtri/Tenof Alaf [Symtuza [id number] Mg Tab]) 1 each PO DAILY@2100 JON - Objective Vital Signs: Vital Signs Temperature 98.8 F 06/28/20 09:35 Pulse Rate 70 06/28/20 09:35 Respiratory Rate 18 06/28/20 09:35 Blood Pressure 114/62 06/28/20 09:35 O2 Sat by Pulse Oximetry (%) 98 06/28/20 09:35 Constitutional: Yes: Well Nourished, No Distress, Calm Eyes: Yes: Conjunctiva Clear, EOM Intact HENT: Yes: Atraumatic, Normocephalic Neck: Yes: Supple, Trachea Midline Cardiovascular: Yes: Regular Rate and Rhythm Respiratory: Yes: Regular, CTA Bilaterally Gastrointestinal: Yes: Normal Bowel Sounds, Soft ...Rectal Exam: Yes: Deferred Musculoskeletal: Yes: Back Pain Extremities: Yes: WNL Edema: No Peripheral Pulses: Left Radial: 2+, Right Radial: 2+ Integumentary: Yes: WNL Neurological: Yes: Alert, Oriented ...Motor Strength: WNL Psychiatric: Yes: Alert, Oriented Labs: CBC, BMP 06/28/20 07:26 06/28/20 07:26 Problem List - Problems (1) HIV (human immunodeficiency virus infection) Assessment/Plan: continue symtuza Code(s): B20 - HUMAN IMMUNODEFICIENCY VIRUS [HIV] DISEASE (2) Prophylactic measure Assessment/Plan: OOB to chair SCDs bowel regimen with senna and colace Code(s): Z29.9 - ENCOUNTER FOR PROPHYLACTIC MEASURES, UNSPECIFIED (3) Compression fracture of L3 vertebra Assessment/Plan: Neurosurgery consult placed pt being managed conservatively pain management with APAP and oxycodone PT evaluation Fall precautions Code(s): S32.030A - WEDGE COMPRESSION FRACTURE OF THIRD LUMBAR VERTEBRA, INIT Qualifiers: Encounter type: initial encounter Qualified Code(s): S32.030A - Wedge compression fracture of third lumbar vertebra, initial encounter for closed fracture Impression/Plan Impression/Plan: Dispo: if cleared by neurosurgery, will d/c home tomorrow Code status: Full Visit type - Emergency Visit Emergency Visit: Yes ED Registration Date: 06/27/20 Care time: The patient presented to the Emergency Department on the above date and was hospitalized for further evaluation of their emergent condition. - New Patient This patient is new to me today: Yes Date on this admission: 06/28/20 - Critical Care Critical Care patient: No - Discharge Referral Referred to [facility] Yes Physician Referral: Donell Li MD ([facility])
[2020-06-28] MEDS ORDERED: SENNOSIDES 8.6MG TABLET (FP) PO PRN (14:06)
[2020-06-28] MEDS: oxyCODONE HCL 5 MG TABLET PO PRN ×2 (14:27→23:09)
--- NOTE | 2020-06-28 15:30 | EKG ---
Test Reason : Blood Pressure : / mmHG Vent. Rate : 052 BPM Atrial Rate : 052 BPM P-R Int : 192 ms QRS Dur : 076 ms QT Int : 436 ms P-R-T Axes : 060 020 027 degrees QTc Int : 405 ms SINUS BRADYCARDIA OTHERWISE NORMAL ECG WHEN COMPARED WITH ECG OF 02-NOV-2016 22:39, NO SIGNIFICANT CHANGE WAS FOUND Confirmed by JOSETTE FERRARI MD (2013) on 06/28/2020 3:29:15 PM Referred By: EVELIA HERRERA Confirmed By:JOSETTE FERRARI MD
[2020-06-28] MEDS ORDERED: PT OWN MED DRAWER 7, Y5N ONE (21:15)
[2020-06-28] MEDS: DOCUSATE SODIUM 100 MG CAPSULE (FP) PO SCH (21:34)
[2020-06-29] MEDS: oxyCODONE HCL 5 MG TABLET PO PRN (04:21)
--- NOTE | 2020-06-29 07:10 | CONSULT ---
<Tom Finch P - Last Filed: 06/29/20 07:18> - Consultation REQUESTING PROVIDER: Neurosurgery - Graham Schwarz CONSULT REQUEST: We have been asked to surgically evaluate this patient for LBP s/p fall with L3 & T12 compression fracture Hospitalist: Lamar Garcia NP HPI: Called to eval 65 yo female with PMHx as noted below. Presents to [facility] ED s/p mechanical fall (tripped on a emilia pathway). Denies any dizzy, weakness, nausea, cp, palpitations, diaphoresis prior too or post fall. Denies LOC. States when she fell, fell backwards striking her back against a cement curb. In ED she had the following imaging studies: 1. L/S Spine XR: scoliosis w/ convexity to the left. Lt hip replacement. Arthritic Rt hip. Normal lordosis. Minimal vertebral wedging and arthritic changes. Slight subluxation of L4 on L5. Intervertebral disc space is preserved. 2. Right Rib XR: As above. Old trauma involving the right humerus with arthritic changes and ? joint calcification 3. Thoracolumbar CT: Mild T12 & L3 superior endplate compression fracture without bony retropulsion. Posterior elements appear intact. Mild L4/5 spondylolithesis. L3/4, L4/5 degenerative central canal stenosis Since admission, patient's pain is managed well with prn medication. She continues to get oob and utilize a rolling walker. She is voiding/stooling spontaneously. Denies dizzy, weak, numbness, tingling, parasthesias, decreased motor strength, burning sensation or rest pain. PMHx: HIV on HAART (undetectable VL) PSHx: Home Meds Symtuza [phone] mg Tab 1 each PO DAILY 06/27/20 Allergies Codeine (rash) Iodinated Contrast Media (rash) ROS: 12 systems reviewed and considered negative except for what's contained in the HPI. PE: GENERAL: A&O. NAD HEAD: NC. AT. EYES: PERRL, sclera anicteric, conjunctiva clear. NECK: Normal ROM, supple without lymphadenopathy, JVD, or masses. LUNGS: Unlabored respirationson room air. CTA bilat HEART: RRR ABDOMEN: Soft, NT. ND. No HSM MUSCULOSKELETAL: Normal ROM at all joints. No bony deformities. Mild ttp in region T12-S1. UE: 2+ pulses, warm, well-perfused. No cyanosis. Cap refill <2 seconds. No peripheral edema. LE: 2+ pulses, warm, well-perfused. No calf tenderness. No peripheral edema. NEUROLOGICAL: CN II-XII grossly intact. No neuro deficits. Last Vital Signs Temp Pulse Resp BP Pulse Ox 98.5 F 76 18 138/48 L 98 06/29/20 06:23 06/29/20 06:23 06/29/20 06:23 06/29/20 06:23 06/29/20 06:23 CBC, BMP 06/28/20 07:26 06/28/20 07:26 Serology Test 06/27/20 14:05 COVID-19 (JASON) Not detected A/P: 65 yo female admitted for pain management s/p mechanical fall resulting in L3 & T12 superior endplate compression fractures. -Cont OOB and ambulate with walker assist device -PRN pain management -ABD binder for additional support while ambulating -No surgical intervention -f/u with Dr. Wing in 2 weeks for re-evaluation in his office. -Cont conservative management -Rest per primary team Above plan discussed with my attending and agrees. On behalf of Dr. Wing, thank you for the opportunity to participate in your patient's care. Problem List - Problems (1) Compression fracture of L3 vertebra Code(s): S32.030A - WEDGE COMPRESSION FRACTURE OF THIRD LUMBAR VERTEBRA, INIT Qualifiers: Encounter type: initial encounter Qualified Code(s): S32.030A - Wedge compression fracture of third lumbar vertebra, initial encounter for closed fracture (2) HIV (human immunodeficiency virus infection) Code(s): B20 - HUMAN IMMUNODEFICIENCY VIRUS [HIV] DISEASE (3) T12 compression fracture Code(s): S22.080A - WEDGE COMPRESSION FRACTURE OF T11-T12 VERTEBRA, INIT Qualifiers: Encounter type: initial encounter Qualified Code(s): S22.080A - Wedge compression fracture of T11-T12 vertebra, initial encounter for closed fracture Visit type - Case Type Case Type: ED Admission - Emergency Emergency Visit: Yes ED Registration Date: 06/27/20 Care time: The patient presented to the Emergency Department on the above date and was hospitalized for further evaluation of their emergent condition. - New patient This patient is new to me today: Yes Date on this admission: 06/29/20 <Graham Wing - Last Filed: 06/29/20 12:44> - Consultation REQUESTING PROVIDER: CONSULT REQUEST: We have been asked to surgically evaluate this patient for (specify). Hospitalist:Lmaar Garcia NP HISTORY OF PRESENT ILLNESS: PMHx: PSHx: Home Medications Medication Instructions Recorded Darunavir/Cob/Emtri/Tenof Alaf 1 each PO DAILY 06/27/20 [Symtuza [id number] mg Tab] Allergies Allergy/AdvReac Type Severity Reaction Status Date / Time codeine [Codeine] Allergy Intermediate Rash Verified 06/27/20 10:51 Iodinated Contrast Media Allergy Rash Verified 06/27/20 10:51 [IV Dye, Iodine Containing Contrast ] REVIEW OF SYSTEMS: CONSTITUTIONAL: Absent: fever, chills, diaphoresis, generalized weakness, malaise, loss of appetite, weight change CARDIOVASCULAR: Absent: chest pain, syncope, palpitations, irregular heart rate, lightheadedne ss, peripheral edema RESPIRATORY: Absent: cough, shortness of breath, dyspnea with exertion, wheezing, stridor, hemoptysis GASTROINTESTINAL: Absent: abdominal pain, abdominal distension, nausea, vomiting, diarrhea, constipation, melena, hematochezia GENITOURINARY: Absent: dysuria, frequency, urgency, hesitancy, hematuria, flank pain, genital pain MUSCULOSKELETAL: Absent: myalgia, arthralgia, joint swelling, back pain, neck pain SKIN: Absent: rash, itching, pallor HEMATOLOGIC/IMMUNOLOGIC: Absent: easy bleeding, easy bruising, lymphadenopathy NEUROLOGIC: Absent: headache, focal weakness, paresthesias, dizziness, unsteady gait, seizure, mental status changes, bladder or bowel incontinence PSYCHIATRIC: Absent: anxiety, depression, suicidal or homicidal ideation, hallucinations. PHYSICAL EXAM: GENERAL: Awake, alert, and fully oriented, in no acute distress. HEAD: Normal with no signs of trauma. EYES: PERRL, sclera anicteric, conjunctiva clear. NECK: Normal ROM, supple without lymphadenopathy, JVD, or masses. LUNGS: Clear to auscultation bilat anteriorly. No wheezes, and no crackles. No accessory muscle use. HEART: Regular rate and rhythm. No murmurs ABDOMEN: Soft, nontender, not distended, normoactive bowel sounds, no guarding, no rebound, no masses. No organomegaly. MUSCULOSKELETAL: Normal ROM at all joints. No bony deformities or tenderness. No CVA tenderness. UPPER EXTREMITIES: 2+ pulses, warm, well-perfused. No cyanosis. Cap refill <2 seconds. No peripheral edema. LOWER EXTREMITIES: 2+ pulses, warm, well-perfused. No calf tenderness. No pe ripheral edema. NEUROLOGICAL: Normal speech, gait not observed. PSYCH: Cooperative. Good eye contact. Appropriate mood and affect. SKIN: Warm, dry, normal turgor, no rashes or lesions noted. Vital Signs Temperature 98.5 F 06/29/20 06:23 Pulse Rate 76 06/29/20 06:23 Respiratory Rate 18 06/29/20 06:23 Blood Pressure 138/48 L 06/29/20 06:23 O2 Sat by Pulse Oximetry (%) 98 06/29/20 06:23 Lab Results WBC 4.6 K/mm3 (4.0-10.8) 06/29/20 07:04 RBC 4.58 M/mm3 (3.60-5.2) 06/29/20 07:04 Hgb 13.3 GM/dl (10.7-15.3) 06/29/20 07:04 Hct 40.5 % (32.4-45.2) 06/29/20 07:04 MCV 88.5 fl (80-96) 06/29/20 07:04 MCHC 32.7 g/dl (32.0-36.0) 06/29/20 07:04 RDW 12.5 % (11.6-15.6) 06/29/20 07:04 Plt Count 213 K/MM3 (134-434) 06/29/20 07:04 Sodium 137 mmol/L (136-145) 06/28/20 07:26 Potassium 4.2 mmol/L (3.5-5.1) 06/28/20 07:26 Chloride 104 mmol/L (98-107) 06/28/20 07:26 Carbon Dioxide 26 mmol/L (21-32) 06/28/20 07:26 Anion Gap 7 MMOL/L (8-16) L 06/28/20 07:26 BUN 20.0 mg/dl (7-18) H 06/28/20 07:26 Creatinine 1.0 mg/dl (0.55-1.3) 06/28/20 07:26 Random Glucose 107 mg/dl (74-106) H 06/28/20 07:26 Calcium 8.3 mg/dl (8.5-10) L 06/28/20 07:26 Case and imaging reviewed. TLICS 1 fractures (1 Morphology; 0 Neurological deficits; 0 Posterior Element compromise). Plan to manage with bracing. No acute Neurosurgical intervention indicated or planned.
[2020-06-29 08:28] LABS: HEMATOCRIT 40.5 % (32.4-45.2); HEMOGLOBIN 13.3 GM/dl (10.7-15.3); MCHC 32.7 g/dl (32.0-36.0); MEAN CELL VOLUME 88.5 fl (80-96); MEAN PLT VOLUME 7.9 fl (7.5-11.1); PLATELET COUNT 213 K/MM3 (134-434); RBC 4.58 M/mm3 (3.60-5.2); RDW 12.5 % (11.6-15.6); WHITE BLOOD COUNT 4.6 K/mm3 (4.0-10.8)
[2020-06-29] MEDS: DOCUSATE SODIUM 100 MG CAPSULE (FP) PO SCH (09:12)
[2020-06-29] MEDS: CALCIUM 500MG/VIT-D 200 UNITS COMBO TABLET (FP) PO SCH (09:12)
[2020-06-29] MEDS ORDERED: LIDOCAINE 5% TOPICAL PATCH TP ONE (12:00)
[2020-06-29 14:04] VITALS: BP 123/64; PULSE 59; TEMP 98.2
--- NOTE | 2020-06-29 14:19 | DS ---
Physical Examination Vital Signs: Vital Signs Temperature 98.5 F 06/29/20 06:23 Pulse Rate 76 06/29/20 06:23 Respiratory Rate 18 06/29/20 06:23 Blood Pressure 138/48 L 06/29/20 06:23 O2 Sat by Pulse Oximetry (%) 98 06/29/20 06:23 Labs: CBC, BMP 06/29/20 07:04 06/28/20 07:26 Discharge Summary Problems reviewed: Yes Reason For Visit: COMPRESSION FRACTURE OF L3 VERTEBRA,COMPRESSION FR Current Active Problems Compression fracture of L3 vertebra (Acute) HIV (human immunodeficiency virus infection) (Acute) Prophylactic measure (Acute) T12 compression fracture (Acute) Condition: Stable - Instructions Referrals: Celeste De [Primary Care Provider] - - Home Medications Comprehensive Discharge Medication List: Ambulatory Orders Darunavir/Cob/Emtri/Tenof Alaf [Symtuza [id number] mg Tab] 1 each PO DAILY 06/27/20 Calcium 500Mg/Vit-D 200 Units [Os-Tyree 500+D -] 1 tab PO BID 30 Days #30 tab 06/29/20 Cyclobenzaprine HCl [Flexeril -] 5 mg PO TID PRN 30 Days #90 tablet 06/29/20 Docusate Sodium [Colace -] 100 mg PO BID 30 Days #60 capsule 06/29/20 oxyCODONE HCL [Roxicodone -] 5 mg PO Q6H PRN 7 Days #28 tablet MDD 4 tabs - Discharge Referral Referred to [facility] Yes Physician Referral: Donell Li MD ([facility])
--- NOTE | 2020-06-29 14:28 | DS ---
Physical Exam: SUBJECTIVE: Patient seen and examined OBJECTIVE: Vital Signs Period Temp Pulse Resp BP Sys/Wilcox Pulse Ox Last 24 Hr 98.2 F-98.5 F 59-76 16-18 123-138/48-64 98-100 PHYSICAL EXAM GENERAL: The patient is awake, alert, and fully oriented, in no acute distress. HEAD: Normal with no signs of trauma. EYES: PERRL, extraocular movements intact, sclera anicteric, conjunctiva clear. ENT: Ears normal, nares patent, oropharynx clear without exudates, moist mucous membranes. NECK: Trachea midline, full range of motion, supple. LUNGS: Breath sounds equal, clear to auscultation bilaterally, no wheezes, no crackles, no accessory muscle use. HEART: Regular rate and rhythm, S1, S2 without murmur, rub or gallop. ABDOMEN: Soft, nontender, nondistended, normoactive bowel sounds, no guarding, no rebound, no hepatosplenomegaly, no masses. EXTREMITIES: 2+ pulses, warm, well-perfused, no edema. NEUROLOGICAL: Cranial nerves II through XII grossly intact. Normal speech, PSYCH: Normal mood, normal affect. SKIN: Warm, dry, normal turgor, no rashes or lesions noted. LABS Laboratory Results - last 24 hr 06/29/20 07:04 WBC 4.6 RBC 4.58 Hgb 13.3 Hct 40.5 MCV 88.5 MCH 29.0 MCHC 32.7 RDW 12.5 Plt Count 213 MPV 7.9 HOSPITAL COURSE: Date of Admission:06/27/20 Date of Discharge: 06/29/20 Minutes to complete discharge: 60 Discharge Summary Problems reviewed: Yes Reason For Visit: COMPRESSION FRACTURE OF L3 VERTEBRA,COMPRESSION FR Current Active Problems Compression fracture of L3 vertebra (Acute) HIV (human immunodeficiency virus infection) (Acute) Prophylactic measure (Acute) T12 compression fracture (Acute) Procedures: Principal: CT cervical spine 06/29/2020. IMPRESSION: The alignment is satisfactory. No gross fracture or subluxation is seen. Multilevel degenerative disc disease with mild disc osteophyte complex and bilateral uncove rtebral hypertrophy, as described above likely impinging both C4 nerve roots at C3-C4 level, likely impinging both C5 nerve roots at C4-C5 level, left more than right, impinging left C6 nerve root at. C5-C6 level and slightly to moderately narrowing the left foramen at C6-C7 level. Correlate clinically to determine further evaluation. Reported By: Evelyn Garza MD 06/29/20 1158. . X-ray C-spine 06/29/2020. Impression: Straightening. Degenerative changes. If symptoms persist, further imaging with CT or MR. may be of help. Reported By: Jc Lou MD 06/29/20 1059. . X-ray Right wrist 06/27/20. Impression: No acute right wrist pathology. Reported By: Jc Lou MD 06/27/[address] T-spine 06/27/2020. IMPRESSION: Acute mild T12 and L3 vertebral body compression fractures are noted without bony retropulsion. Marked L3-L4 and L4-L5 degenerative central canal stenosis is seen. Reported By: Suhail Us MD 06/27/[address] L spine 06/27/2020. IMPRESSION: Acute mild T12 and L3 vertebral body compression fractures are noted without bony retropulsion. Marked L3-L4 and L4-L5 degenerative central canal stenosis is seen. Reported By: Suhail Us MD 06/27/20 1313. . Thoracic Spine X-ray 06/27/2020. Thoracic spine: Fall. Pain. 5 views of the thoracic spine and submitted. There is a scoliosis with convexity to the right, degenerative changes, wedging but no sign of a gross fracture or subluxation and no sign of blastic or lytic changes. The vertebral wedging of looks old. If there is any continued pain then further imaging may be of help. Reported By: Jc Lou MD 06/27/20. . X-ray Right ribs 06/27/20. Impression: Scoliosis. Degene rative changes. Clear lungs. Sharp angles. Normal ribs. Old trauma. involving the right humerus with arthritic changes and possible joint calcification. Correlation recommended. If symptoms persist, further imaging may be of help. Reported By: Jc Lou MD 06/27/20 5499. . X-ray Lumbar spine 06/27/20. 5 views of the LS spine submitted. The AP projections of scoliosis with convexity to the left,. patent SI joints, left hip replacement, arthritic right hip changes and intact paraspinal soft. tissues. Lateral and spot lateral view show a normal lordosis with some minimal vertebral wedging. and arthritic changes. There is slight for subluxation of L4 on L5 by several millimeters. Intervertebral disc space are preserved. If symptoms persist or there is decreased range of motion,. then further imaging and orthopedic consultation may be of help. Please note the forward subluxation. appears new since 11/02/2016. Reported By: Jc Lou MD 06/27/20 7624. Other Procedures: EKG 06/27/2020. SB 52bpm Hospital Course: 65 F h/o HIV on HAART (undetectable VL), otherwise no PMHx, presents s/p mechanical fall after tripping on a "emilia pathway". Patient denies prodromal symptoms such as SOb/CP/dizziness/vertigo/palpitations. Endorses fall was mechanical landing on her back. In ED imaging showing acute fx of T12-L3, NSG consulted recommending conservative management. Pt. to be admitted for pain control and PT. Denies COVID symptoms, COVID screen negative. Pt seen by Surgical PA from Neurosurg team. Current recommendation was conservative management, with two weeks neurosurgery outpt follow up. Health Concerns: [facility] in network neurosurgeon PLEASE CALL TO SCHEDULE AN APPOINTMENT [facility] Dr. Gerry Blue [address] [place], [place] [id number] [place] Plan of Treatment: -ambulate with walker assist device -PRN pain management -ABD binder for additional support while ambulating -No surgical intervention -Follow up with neurosurgery in 2 weeks for re-evaluation. Dr. Wing does not accept [facility], therefore, a provider within your network is listed on your discharge paperwork, please call and schedule an appointment -FOLLOW UP with your primary care provider post discharge Goals: Improve mobility Decrease pain level Increase functional ability Condition: Stable - Instructions Diet, Activity, Other Instructions: You have a compression fracture or break in one of the bones in your spine. This kind of break usually happens in older people with thinning of the bones called osteoporosis. It may happen after a ground level fall or even with a very minor force. This can include bending forward, getting up from a seated position, coughing, or sneezing. It may also occur in young healthy people after a severe injury, such as a car accident or fall from a height. This is generally a stable break and usually does not cause any injury to the spinal cord or nerves. This injury usually takes 1 to 3 months to heal. It can be treated at home with bed rest and pain medicine. Prescription or bulb-[id number]-[id number] pain medicine can be used to control the pain. Long-term use of pain medicine can increase the risk of side effects. This includes: liver or kidney damage, gastrointestinal bleeding, constipation, or narcotic dependence. If you have chronic liver or kidney disease, or ever had a stomach ulcer or gastrointestinal bleeding, talk with your healthcare provider before using these medicines. If pain medicine is needed for more than 1 to 2 weeks, talk with your healthcare provider about other treatment options. A back brace or abdominal binder may be prescribed to reduce pain by limiting motion at the site of the break. If you have osteoporosis, talk with your healthcare provider about using calcium and vitamin D supplements. You may need prescription medicines to prevent further bone loss. An exercise program to strengthen spine strength is a very important part of the treatment plan. It should start once the pain is under control. If you have severe or persistent pain, your healthcare provider may recommend a procedure called a vertebral augmentation. In this procedure, a needle is used to inject a bone cement into the broken vertebra. This will expand it cloth printing back tender to its original shape. Home care You may need to stay in bed for the first few days. But, start sitting or walking as soon as possible. This will help prevent problems with prolonged bed rest such as: muscle weakness, worsening back stiffness and pain, and blood clots in the legs. When in bed, try to find a comfortable position. A firm mattress is best. Try lying flat on your back with pillows under your knees. You can also try lying on your side with your knees bent up towards your chest and a pillow between your knees. Don't sit for long periods of time. This puts more stress on the lower back than standing or walking. Apply an ice pack over the injured area for 15 to 20 minutes every 3 to 6 hours. You should do this for the first 24 to 48 hours. You can make an ice pack by filling a plastic bag that seals at the top with ice cubes and then wrapping it with a thin towel. You can start with ice, then switch to heat after 2 days. Apply heat (warm shower or warm bath) for 15 to 20 minutes several times a day for muscle spasms. Some people feel best alternating ice and heat treatments. Use the one method that feels the best to you. Be careful not to injure your skin with the ice or heat treatments. Ice should never be applied directly to skin. Warm rather than hot heat should be used to protect skin areas that have decreased sensation. Take pain medicine as directed. Call your healthcare provider if your pain is not well-controlled. A dose change, stronger medicine, or other treatment options may be needed. Be aware of safe lifting methods and don't lift anything over 10 pounds until all the pain is gone. Follow-up care Follow up with your healthcare provider, or as advised. Call 911 if you have: Weakness or numbness in one or both legs Loss of control over bowels or bladder Numbness in the groin area Referrals: Celeste De [Primary Care Provider] - Disposition: HOME - Home Medications Comprehensive Discharge Medication List: Ambulatory Orders Darunavir/Cob/Emtri/Tenof Alaf [Symtuza [phone] mg Tab] 1 each PO DAILY 06/27/20 Calcium 500Mg/Vit-D 200 Units [Os-Tyree 500+D -] 1 tab PO BID 30 Days #30 tab 06/29/20 Cyclobenzaprine HCl [Flexeril -] 5 mg PO TID PRN 30 Days #90 tablet 06/29/20 Docusate Sodium [Colace -] 100 mg PO BID 30 Days #60 capsule 06/29/20 oxyCODONE HCL [Roxicodone -] 5 mg PO Q6H PRN 7 Days #28 tablet MDD 4 tabs 06/29/20 Problem List - Problems (1) HIV (human immunodeficiency virus infection) Code(s): B20 - HUMAN IMMUNODEFICIENCY VIRUS [HIV] DISEASE (2) Prophylactic measure Code(s): Z29.9 - ENCOUNTER FOR PROPHYLACTIC MEASURES, UNSPECIFIED (3) Compression fracture of L3 vertebra Code(s): S32.030A - WEDGE COMPRESSION FRACTURE OF THIRD LUMBAR VERTEBRA, INIT Qualifiers: Encounter type: initial encounter Qualified Code(s): S32.030A - Wedge compression fracture of third lumbar vertebra, initial encounter for closed fracture (4) Cervical spine disease Code(s): M48.9 - SPONDYLOPATHY, UNSPECIFIED This patient is new to me today: No Emergency Visit: Yes ED Registration Date: 06/27/20 Care time: The patient presented to the Emergency Department on the above date and was hospitalized for further evaluation of their emergent condition. Critical Care patient: No - Discharge Referral Referred to [facility] Yes Physician Referral: Donell Li MD ([facility])
[2020-06-29] MEDS ORDERED: LIDOCAINE PATCH REMOVAL MC ONE (22:00)
== END 2020-06-29 16:42 | disposition home or self-care (01) | DRG 347 ==
LOC: FER 10:47 → FM/S 14:52
PROVIDERS: ATTEND Nurse Practitioner Family
DX: S32.030A Wedge compression fracture of third lumbar vertebra, initial encounter for closed fracture (principal); S22.080A Wedge compression fracture of T11-T12 vertebra, initial encounter for closed fracture; M41.86 Other forms of scoliosis, lumbar region; Z21 Asymptomatic human immunodeficiency virus [HIV] infection status; M48.9 Spondylopathy, unspecified; W19.XXXA Unspecified fall, initial encounter; Y99.9 Unspecified external cause status; Y93.9 Activity, unspecified; Y92.89 Other specified places as the place of occurrence of the external cause
CPT/HCPCS: 36415; 71101-TC-RT-FY; 72040-TC; 72070-TC-FY; 72100-TC-FY; 72125-TC; 72128-TC; 72131-TC; 73110-TC-RT-FY; 80053; 85025; 85027; 93005; 97116-GP; 97162-GP; 99285-25; J0131; U0003

== ENCOUNTER 2021-01-27 17:25 | Emergency (ER) | payer OTHER ==
[2021-01-27 18:01] VITALS: BMI 29.2
[2021-01-27] MEDS ORDERED: BAMLANIVIMAB 700 MG, ETESEVIMAB 1,400 MG in SODIUM CHLORIDE 250 ML IVPB ONE (18:05)
[2021-01-27 18:45] LABS: BASO % 0.7 % (0-2.0); EOS % 0.2 % (0-4.5); HEMATOCRIT 37.9 % (32.4-45.2); HEMOGLOBIN 12.8 GM/dL (10.7-15.3); LYMPH % 30.7 % (8-40); MCH 29.3 pg (25.7-33.7); MCHC 33.6 g/dl (32.0-36.0); MEAN CELL VOLUME 87.3 fl (80-96); MEAN PLT VOLUME 8.1 fl (7.5-11.1); MONO % 8.5 % (3.8-10.2); NEUT % 59.9 % (42.8-82.8); PLATELET COUNT 180 K/MM3 (134-434); RBC 4.35 M/mm3 (3.60-5.2); RDW 13.8 % (11.6-15.6); WHITE BLOOD COUNT 2.8 K/mm3 (4.0-10.0)
[2021-01-27 22:19] VITALS: BP 139/79; PULSE 71; TEMP 98.8
== END 2021-01-27 22:32 | disposition home or self-care (01) ==
LOC: JER 17:25
DX: U07.1 COVID-19 (principal)
CPT/HCPCS: 36415; 85025; 96374; 99284-25; M0239; Q0239; Q0245

== ENCOUNTER 2021-12-25 04:41 | Day surgery (SDC) | payer OTHER ==
[2021-11-26 12:08] VITALS: BMI 29.9
[~2021-12-25 04:41] MED LIST: ACETAMINOPHEN 325 MG TABLET (FP) PO PRN; CYCLOPENTOLATE HCL 1% OPHTH SOLN 2 ML BOTTLE OP SCH; KETOROLAC TROMETHAMINE 0.5% EYE DROP 1 DROP DROPS OP SCH; OFLOXACIN 0.3% OPHTHALMIC SOLUTION 5 ML BOTTLE OP SCH; PHENYLEPHRINE 2.5% OPHTH SOLN 15 ML BOTTLE OP SCH; TROPICAMIDE 1% OPHTH SOLN 15 ML BOTTLE OP SCH
[2021-12-25] MEDS ORDERED: TETRACAINE 0.5% OPHTH SOLN 2 ML BOTTLE ONE (07:30)
[2021-12-25] MEDS ORDERED: LIDOCAINE HCL/PF 1% SDV 5ML VIAL ONE (07:30)
[2021-12-25] MEDS ORDERED: POVIDONE-IODINE 5% OPHTHALMIC PREP 30 ML SOLUTION ONE (07:30)
[2021-12-25] MEDS ORDERED: TRYPAN BLUE 0.5 ML DISP.SYRIN ONE (07:30)
[2021-12-25] MEDS ORDERED: PHENYLEPHRINE 2.5% OPTHALMIC DROP BOTTLE ONE (09:22)
[2021-12-25] MEDS ORDERED: KETOROLAC TROMETHAMINE 0.5% EYE DROP 1 DROP DROPS ONE (09:22)
[2021-12-25] MEDS ORDERED: TROPICAMIDE 1% OPHTH SOLN 15 ML BOTTLE ONE (09:22)
[2021-12-25] MEDS ORDERED: OFLOXACIN 0.3% OPHTHALMIC SOLUTION 5 ML BOTTLE ONE (09:22)
[2021-12-25] MEDS ORDERED: CYCLOPENTOLATE HCL 1% OPHTH SOLN 2 ML BOTTLE ONE (09:22)
[2021-12-25] MEDS: TROPICAMIDE 1% OPHTH SOLN 15 ML BOTTLE OP SCH ×3 (09:25→09:35)
[2021-12-25] MEDS: PHENYLEPHRINE 2.5% OPHTH SOLN 15 ML BOTTLE OP SCH ×3 (09:25→09:35)
[2021-12-25] MEDS: KETOROLAC TROMETHAMINE 0.5% EYE DROP 1 DROP DROPS OP SCH ×3 (09:25→09:35)
[2021-12-25] MEDS: OFLOXACIN 0.3% OPHTHALMIC SOLUTION 5 ML BOTTLE OP SCH ×3 (09:25→09:35)
[2021-12-25] MEDS: CYCLOPENTOLATE HCL 1% OPHTH SOLN 2 ML BOTTLE OP SCH ×3 (09:25→09:35)
[2021-12-25] MEDS ORDERED: MIDAZOLAM HCL 2 MG/2 ML SINGLE DOSE VIAL ONE (11:21)
[2021-12-25] MEDS ORDERED: KETOROLAC TROMETHAMINE 30 MG/1 ML VIAL ONE (11:21)
[2021-12-25] MEDS ORDERED: TETRACAINE 0.5% OPHTH SOLN 2 ML BOTTLE TP ONE (11:22)
[2021-12-25] MEDS ORDERED: POVIDONE-IODINE 5% OPHTHALMIC PREP 30 ML SOLUTION OD ONE (11:23)
[2021-12-25] MEDS ORDERED: CHONDROITIN SU A/HYALUR SOD 1 KIT IO ONE ×2 (11:30)
[2021-12-25] MEDS ORDERED: TRYPAN BLUE 0.5 ML DISP.SYRIN IO ONE (11:30)
[2021-12-25] MEDS ORDERED: LIDOCAINE HCL 1% PRESERVATIVE FREE - 30ML VIAL IO ONE (11:30)
[2021-12-25] MEDS ORDERED: BSS (NA/CA/MG/K) BALANCED SALT SOLUTION OPHTH SOLN 15 ML BOTTLE OD ONE (11:30)
[2021-12-25] MEDS ORDERED: EPINEPHrine/PF 1 MG/1 ML (1:1,000) AMPULE SQ ONE (11:40)
[2021-12-25 13:29] VITALS: BP 142/53; PULSE 77; TEMP 98.2
== END 2021-12-25 13:36 | disposition home or self-care (01) ==
LOC: JASU-SURG 04:41
PROVIDERS: ATTEND Ophthalmology
PROC: 08RJ3JZ Replacement of Right Lens with Synthetic Substitute, Percutaneous Approach (ICD-10-PCS; principal; 2021-12-25 11:00)
DX: H26.9 Unspecified cataract (principal)

== ENCOUNTER 2022-08-07 20:30 | Emergency (ER) | payer OTHER ==
[2022-08-07 20:56] VITALS: BP 171/87; PULSE 81; RESP 17; TEMP 98.7; BMI 30.1
[2022-08-07] MEDS ORDERED: ONDANSETRON *ODT* 4 MG TABLET SL ONE (22:23)
[2022-08-07] MEDS ORDERED: ONDANSETRON *ODT* 4 MG TABLET ONE (22:27)
== END 2022-08-07 22:53 | disposition home or self-care (01) ==
LOC: FER 20:30
DX: S16.1XXA Strain of muscle, fascia and tendon at neck level, initial encounter (principal); L03.115 Cellulitis of right lower limb; V43.62XA Car passenger injured in collision with other type car in traffic accident, initial encounter
CPT/HCPCS: 72050-TC-FY; 73630-TC-RT-FY; 99284-25; Q0162